=== PATIENT | female | born 1960 | race Hispanic/Latino ===

== ENCOUNTER 2023-09-27 16:00 | Outpatient (CLI) | payer BC | END 2023-09-27 16:01 | disposition home or self-care (01) | LOC: CSHSLEEP 16:00 | PROVIDERS: ATTEND Specialist | DX: G47.33 Obstructive sleep apnea (adult) (pediatric) (principal); R53.83 Other fatigue; F32.A Depression, unspecified; K21.9 Gastro-esophageal reflux disease without esophagitis; R06.83 Snoring | CPT/HCPCS: 95810 ==